=== PATIENT | male | born 1995 | race Caucasian/White ===

== ENCOUNTER 2025-06-21 06:53 | Emergency (ER) | payer MEDICARE, SELFPAY ==
[2025-06-21 07:00] VITALS: BP 146/76
[2025-06-21 07:07] VITALS: BMI 25.7
--- NOTE | 2025-06-21 07:10 | ED.GENMED ---
History of Present Illness
<Duane Aparicio PA-C - Last Filed: 06/21/25 09:06>
General
Chief Complaint: Seizure
Time Seen by Provider: 06/21/25 06:55
History of Present Illness
History of Present Illness:
30-year-old male with history of severe developmental delay/nonverbal presents to the emergency department for evaluation of a seizure-like event. Father states that he awoke from sleeping, yelled out abruptly and then seemed to lose consciousness.
During this time he wants diffuse tenderness with salivation from the mouth. The episode lasted 1 last. The emergency department he is back to his baseline mentation which is quite agitated. Appears to be moving all extremities.. Unable to
obtain history from the patient directly. Per father he has no history of seizure disorder and takes no medications with the exception of acetaminophen/diphenhydramine marijuana at nighttime for sleep purposes. Dosage of this was not changed
recently.
Review of Systems
<Duane Aparicio PA-C - Last Filed: 06/21/25 09:06>
Review of Systems
Allergies reviewed?: Yes
All Other Systems: ROS reviewed and negative except as documented in HPI and ROS
Phy Exam
<IVELISSE Mackey Last Filed: 06/21/25 09:06>
Physical Exam
Physical Exam:
GEN: Well appearing, NAD, WDWN
HEENT: Oral mucosa moist, no scleral icterus
Cardiac: Tachycardic, regular
Lung: No respiratory distress, no tachypnea, lungs clear to auscultation
MSK: No gross deformity or injuries
Skin: Good color, no pallor or jaundice, no rashes
Neuro: Alert to baseline, agitated and moving all extremities freely, quite vigorous, grunting often
Psych: Calm, cooperative
Course
<Duane Aparicio PA-C - Last Filed: 06/21/25 09:06>
Orders/Labs/Results
Orders:
Orders
06/21/25 07:10
CT Head W/o Iv Contrast Urgent
Comment:
Reason For Exam: new onset seizure
Midazolam HCl [Versed] 2 mg IV NOW STA
06/21/25 07:32
Complete Blood Count/With Diff Urgent
Comprehensive Metabolic Panel Urgent
Urinalysis Reflex To Culture Urgent
Date Specimen was Collected: 06/21/25
Time Specimen was Collected: 07:31
Urine Microscopic Reflex Cult Urgent
06/21/25 07:40
Midazolam HCl [Versed] 2 mg IV NOW STA
Abnormal Lab Results
06/21/25
07:32
MCHC 32.3 L g/dL
(33.0-37.0)
RDW 14.7 H %
(11.5-14.5)
Abs Immat Gran (auto) 0.1 H 10^3/uL
(0-0.05)
Immature Gran % 1.5 H %
(0-0.5)
Carbon Dioxide 21 L mmol/L
(22-30)
Glucose 171 H mg/dl
(70-99)
Ur Occult Blood Reflex 3+ A
(Negative)
Urine Albumin (Reflex) 2+ A
(Neg - Trace)
06/21/25 07:32
06/21/25 07:32
Vital Signs
Initial and Last Documented VS:
Initial Vital Signs
BP
146/76
06/21/25 07:00
Last Documented Vital Signs
Temp Pulse Resp BP Pulse Ox
97.0 F 130 20 146/76 94
06/21/25 07:04 06/21/25 07:30 06/21/25 08:00 06/21/25 07:00 06/21/25 07:30
<Tiffanie Abdullahi MD - Last Filed: 06/21/25 08:21>
Orders/Labs/Results
Orders:
Orders
06/21/25 07:10
CT Head W/o Iv Contrast Urgent
Comment:
Reason For Exam: new onset seizure
Midazolam HCl [Versed] 2 mg IV NOW STA
06/21/25 07:32
Complete Blood Count/With Diff Urgent
Comprehensive Metabolic Panel Urgent
Urinalysis Reflex To Culture Urgent
Date Specimen was Collected: 06/21/25
Time Specimen was Collected: 07:31
Urine Microscopic Reflex Cult Urgent
06/21/25 07:40
Midazolam HCl [Versed] 2 mg IV NOW STA
Abnormal Lab Results
06/21/25
07:32
MCHC 32.3 L g/dL
(33.0-37.0)
RDW 14.7 H %
(11.5-14.5)
Abs Immat Gran (auto) 0.1 H 10^3/uL
(0-0.05)
Immature Gran % 1.5 H %
(0-0.5)
Carbon Dioxide 21 L mmol/L
(22-30)
Glucose 171 H mg/dl
(70-99)
Ur Occult Blood Reflex 3+ A
(Negative)
Urine Albumin (Reflex) 2+ A
(Neg - Trace)
06/21/25 07:32
06/21/25 07:32
Vital Signs
Initial and Last Documented VS:
Initial Vital Signs
BP
146/76
06/21/25 07:00
Last Documented Vital Signs
Temp Pulse Resp BP Pulse Ox
97.0 F 130 20 146/76 94
06/21/25 07:04 06/21/25 07:30 06/21/25 08:00 06/21/25 07:00 06/21/25 07:30
<Duane Aparicio PA-C - Last Filed: 06/21/25 09:06>
MDM/Problems Addressed
MDM/Problems Addressed:
No obvious provoking factor for the patient's seizure and he remained at his baseline mentation throughout emergency department stay. Labs and CT unremarkable. Did discuss case with neurolgy carbon furnace operator who does not recommend AED therapy at this time.
Recommend outpatient primary care and neurology follow-up, I did discuss decreasing nighttime diphenhydramine use with patient's parents
<Duane Aparicio PA-C - Last Filed: 06/21/25 09:06>
*Pulse Oximetry
Patient hypoxic: no
*Critical Care Note
Total Time (30-74mins, 75-104mins- exclusive of procedures): Not Applicable
ED Attending Note
<Duane Aparicio PA-C - Last Filed: 06/21/25 09:06>
-
Portions of this chart may have been created with voice recognition software.� Occasional wrong word or��sound alike� substitutions may have occurred due to the inherent limitations of voice recognition software.
<Tiffanie Abdullahi MD - Last Filed: 06/21/25 08:21>
ED Attending Note
Patient seen and examined by attending physician: Yes
I performed the substantive portion of visit, reviewed & personally made and approve the management plan that is documented in note by myself or DEMETRI.: Yes
ED Attending Note:
30-year-old male who typically only sleeps 5 to 6 hours a night, awoke as he typically would approximate 1:45 AM and came downstairs to watch TV. His father was there with him when he was noted to jump up from the couch, scream out, get stiff, and
then fall back down into couch. Family was concerned that he was difficult to arouse for few minutes, and is now agitated. No cyanosis, apnea. He did have bleeding noted from the left side of his mouth which they suspect is related to biting his
tongue. Patient is now at baseline here. On exam, heart regular rate rhythm, lungs CTA, moves all extremities equally. Labs generally unremarkable, CT pending. History and physical very suggestive of new onset seizure, meds would typically not
be indicated at this time, will need close outpatient follow-up.
Discharge Plan
Departure
Patient Disposition: Home (Routine Discharge)
Date of Disposition: 06/21/25
Time of Disposition: 08:39
Patient with high blood pressure during this ER visit?: No
Discharge Problem:
Seizure
Instructions: Seizures, Adult (DC)
Referrals:
Tiffanie Cui MD [Non-Admitting Privileges, Psychiatry]
Larry Rodriguez DO [Family Provider, Family Practice]
Activity Restrictions/Additional Instructions:
Follow up with neurology
Contact your primary care physician for MRI brain if neurology follow up is not possible within the next few weeks
Decrease the Advil PM usage (due to diphenhydramine/Benadryl component) if possible
Return with any repeat seizure events
Interventions
Interventions:
*Risk Screen - Suicide Last Done: 06/21/25 07:37
*General Assessment Last Done: 06/21/25 07:14
*Neglect/Abuse Screening Last Done: 06/21/25 07:35
*ED- Fall Risk Assessment Last Done: 06/21/25 07:14
*ED COVID-19 Vaccine History Last Done: 06/21/25 07:14
*ED Influenza Vaccine History Last Done: 06/21/25 07:14
*Nursing Disposition Last Done: 06/21/25 08:58
ED- Cardiac Assessment Last Done: 06/21/25 07:37
ED- Neurological Assessment Last Done: 06/21/25 07:38
ED- Pulmonary Assessment Last Done: 06/21/25 07:39
Discharge Date and Time
Discharge Date/Time: 06/21/25 08:58
Print Language: TURKMEN
[2025-06-21] MEDS: VERSED 2 MG IV ×2 (07:26→07:43)
[2025-06-21 07:46] LABS: Hematocrit 40.9 % (39.0-52.0); Hemoglobin 13.2 g/dL (13.0-18.0); Mean Corp Hgb Conc. 32.3 g/dL (33.0-37.0); Mean Corpuscular Volume 86.7 fL (80.0-94.0); Nucleated Red Blood Cells % 0 % (-); Platelet Count 249 10^3/uL (130-400); Red Cell Dist. Width 14.7 % (11.5-14.5)
[2025-06-21 07:50] LABS: Urine Character Clear (Clear)
[2025-06-21 08:12] LABS: ALT (SGPT) 22 U/L (0-50); AST (SGOT) 28 U/L (17-59); Albumin 5.0 g/dl (3.5-5.0); Alkaline Phosphatase 61 U/L (38-126); Blood Urea Nitrogen 15 mg/dl (9-20); Calcium 9.6 mg/dl (8.4-10.2); Carbon Dioxide 21 mmol/L (22-30); Chloride 105 mmol/L (98-107); Estimated Creatinine Clearance 99 ml/min; Glucose 171 mg/dl (70-99); Potassium 3.9 mmol/L (3.5-5.1); Sodium 140 mmol/L (135-145); Total Protein 7.7 g/dl (6.3-8.2); eGFR > 60.00
[2025-06-21 08:14] LABS: Urine Red Blood Cell 0-2 /HPF (0-2); Urine Urothelial Cell 0-2 /LPF (FEW); Urine White Cell 0-2 /HPF (0-5)
== END 2025-06-21 08:58 | disposition home or self-care (01) ==
LOC: EMR 06:53
PROVIDERS: Physician Assistant; EMERGENCY PHYSICIAN Emergency Medicine; FAMILY PHYSICIAN Family Medicine
DX: R56.9 Unspecified convulsions (principal); F88 Other disorders of psychological development
CPT/HCPCS: 96374; 96376; 99284; 70450; 80053; 81003; 81015; 85025

== ENCOUNTER 2025-06-24 08:32 | Emergency (ER) | payer MEDICARE, SELFPAY ==
[2025-06-24 08:44] VITALS: BP 128/88
[2025-06-24 09:18] VITALS: BMI 24.7
--- NOTE | 2025-06-24 10:03 | ED.GENMED ---
History of Present Illness
General
Chief Complaint: Fever
Source: family (Sister, mother, father)
Time Seen by Provider: 06/24/25 09:16
History of Present Illness
History of Present Illness:
This is a 30-year-old male, nonverbal, autism is for reevaluation after a recent visit for a presumed seizure. Since that episode patient has not been ambulating at all or bearing weight. Per the family it seems to be the left knee and possibly
the back causing his issues. At rest and lying flat he appears stable otherwise. He has also had some low-grade intermittent fevers to 101. No other infectious symptoms, no cough congestion vomiting apparent abdominal pain etc. He does normally
however ambulate on his own and has been nonambulatory since this event 3 days ago
Past History
Past History
ED Past Medical History: Other (Autism developmental delays)
ED Past Surgical History: Orthopedic
Review of Systems
Review of Systems
Constitutional: Reports fever
Respiratory: Reports no symptoms
Cardiac: Reports no symptoms
ABD/GI: Reports no symptoms
Phy Exam
Physical Exam
Physical Exam:
GENERAL: Alert. Sitting in bed looking at his iPad. Normocephalic atraumatic
EYE: Orbits normal.
NECK: Supple
CARDIAC: Regular rate and rhythm without any obvious murmurs.
LUNGS: Clear breath sounds,normal
ABDOMEN: Soft, without focal tenderness or distention
NEUROLOGICAL: Grossly nonfocal. Delayed. Does not follow commands. Will move all extremities.
SKIN: Warm and dry, no rash or lesion, no discoloration, skin intact.
MUSCULOSKELETAL: Mild swelling below the left patella but no warmth or erythema. No joint swelling. Does not appear to have any obvious joint pain however difficult to evaluate. Allows me to rotate the hips. Pelvis is stable. Upper extremities
are normal. Will not straight leg raise but this is apparently normal for him. Does appear to have pain and winces with sitting up to evaluate his back. However there is no swelling no abrasion no point tenderness.
PSYCH: Normal and appropriate interaction.
Course
Orders/Labs/Results
Orders:
Orders
06/24/25 09:47
IV Insert/Care/Rem.- Treatment PRN
CR Cervical Spine 2 or 3 Vw Urgent
Comment:
Reason For Exam: back pain
Knee, Left 4 or More Views [CR Knee - Left 4 Or More View*] Urgent
Comment:
Reason For Exam: back pain
Lumbar Spine, 2 or 3 View [CR Lumbar Spine 2 Or 3 Views] Urgent
Comment:
Reason For Exam: back pain
Pelvis, 1 or 2 Views CR [CR Pelvis - 1 Or 2 Views ] Urgent
Comment:
Reason For Exam: non weight bearing
Thoracic Spine 3 Views CR [CR Thoracic Spine 3 Views] Urgent
Comment:
Reason For Exam: nonweight bearing
06/24/25 09:50
CXR2 [CR Chest - 2 Views ] Urgent
Comment:
Reason For Exam: trauma
06/24/25 11:12
Basic Metabolic Panel Urgent
Complete Blood Count/With Diff Urgent
Lyme Progressive Urgent
06/24/25 11:49
COVID-19 Antigen Urgent
Source: Nasal Swab
Influenza A+B Rapid Molecular Urgent
RICARDO Source: Nasal Swab
Specimen Description:
06/24/25 12:08
CT Pelvis W/o Iv Contrast Urgent
Comment:
Reason For Exam: Evaluate bilateral hip abnormalities
Acetaminophen [Tylenol] 650 mg PO NOW STA
06/24/25 15:14
Urinalysis Reflex To Culture Urgent
Abnormal Lab Results
06/24/25
11:12
RBC 4.54 L 10^6/uL
(4.70-6.10)
MCHC 32.6 L g/dL
(33.0-37.0)
RDW 14.9 H %
(11.5-14.5)
Absolute Lymphs (auto) 0.9 L 10^3/uL
(1.2-3.4)
Neutrophils % 79.9 H %
(42.2-75.2)
Lymphocytes % 11.2 L %
(20.5-51.1)
Glucose 111 H mg/dl
(70-99)
06/24/25 11:12
06/24/25 11:12
Vital Signs
Initial and Last Documented VS:
Initial Vital Signs
Temp Pulse Resp BP Pulse Ox
98.8 F 120 18 128/88 98
06/24/25 08:44 06/24/25 08:44 06/24/25 08:44 06/24/25 08:44 06/24/25 08:44
Last Documented Vital Signs
Temp Pulse Resp BP Pulse Ox
98.8 F 111 28 128/88 98
06/24/25 08:44 06/24/25 09:45 06/24/25 09:45 06/24/25 08:44 06/24/25 10:07
MDM/Problems Addressed
Differential Diagnosis Includes:
Difficult exam and difficult in finding the etiology of patient's symptoms. Clinically appears very nontoxic. As far as the knee swelling and fever clinically the knee is actually cool and not warm. There is no general joint swelling the mild
swelling appears to be picked up below the patella. Highly doubt septic arthritis. We will check labs to raise and lower clinical suspicion for issues check x-rays of the spine pelvis and knee.
*Radiology
Radiology exam reviewed: radiology read reviewed (Bilateral femoral head fractures. Questionable T6 fracture. Stercoral colitis. Bladder wall thickening)
*Pulse Oximetry
SaO2: 98
Oxygen Mode of Delivery: Room air
Patient hypoxic: no
*Critical Care Note
Total Time (30-74mins, 75-104mins- exclusive of procedures): 45
Data Reviewed
Review of Other/Old Records Reveals: Labs, Records, Radiology Studies and Testing
Update Note
Update Note:
Multiple discussions with family concerning approach. Orthopedics reviewed this and felt this tertiary orthopedic care. Patient's sister works at [facility]. Discussed with orthopedics [facility] who felt comfortable managing this. Patient
transferred to [facility] to the orthopedic/medicine service.
ED Attending Note
-
Portions of this chart may have been created with voice recognition software.� Occasional wrong word or��sound alike� substitutions may have occurred due to the inherent limitations of voice recognition software.
Discharge Plan
Departure
Patient Disposition: Acute Care Hospital
Date of Disposition: 06/24/25
Time of Disposition: 16:40
Discharge Problem:
Bilateral complex subcapital femur fract, Possible T6 fracture , Developmental delay, Possible recent seizure, stercoral colitis
Referrals:
Larry Rodriguez, DO [Family Provider, Family Practice]
Hospital Transfer
Other hospital: [facility]
I certify that the patient requires transfer: Yes
Discussed case with accepting physician: Brad
Reason for transfer: higher level of care
Interventions
Interventions:
*Risk Screen - Suicide Last Done: 06/24/25 08:44
*General Assessment Last Done: 06/24/25 09:22
*Neglect/Abuse Screening Last Done: 06/24/25 08:44
*ED- Fall Risk Assessment Last Done: 06/24/25 09:22
*ED COVID-19 Vaccine History Last Done: 06/24/25 09:22
ED- Neurological Assessment Last Done: 06/24/25 09:22
ED-Skin Assessment Last Done: 06/24/25 09:22
Discharge Date and Time
Print Language: UPPER SORBIAN
[2025-06-24 11:22] LABS: Hematocrit 39.9 % (39.0-52.0); Hemoglobin 13.0 g/dL (13.0-18.0); Mean Corp Hgb Conc. 32.6 g/dL (33.0-37.0); Mean Corpuscular Volume 87.9 fL (80.0-94.0); Nucleated Red Blood Cells % 0 % (-); Platelet Count 227 10^3/uL (130-400); Red Cell Dist. Width 14.9 % (11.5-14.5)
[2025-06-24 11:56] LABS: Blood Urea Nitrogen 16 mg/dl (9-20); Calcium 9.0 mg/dl (8.4-10.2); Carbon Dioxide 28 mmol/L (22-30); Chloride 106 mmol/L (98-107); Estimated Creatinine Clearance > 125 ml/min; Glucose 111 mg/dl (70-99); Potassium 3.8 mmol/L (3.5-5.1); Sodium 140 mmol/L (135-145); eGFR > 60.00
[2025-06-24 12:14] LABS: COVID-19 Antigen Negative (Negative)
[2025-06-24] MEDS: TYLENOL 650 MG PO (12:16)
[2025-06-24 16:36] VITALS: BP 138/98
[2025-06-24 16:40] VITALS: BP 138/98
[2025-06-24] MEDS: TORADOL 15 MG IV (16:57)
[2025-06-24 17:02] LABS: Urine Character Clear (Clear)
[2025-06-24 17:11] LABS: Urine Red Blood Cell 0-2 /HPF (0-2)
[2025-06-25 16:09] LABS: Lyme Antibody Screen, EIA Negative (Negative)
== END 2025-06-24 17:12 | disposition short-term general hospital (02) ==
LOC: EMR 08:32
PROVIDERS: EMERGENCY PHYSICIAN Emergency Medicine; FAMILY PHYSICIAN Family Medicine
DX: S72.012A Unspecified intracapsular fracture of left femur, initial encounter for closed fracture (principal); S72.011A Unspecified intracapsular fracture of right femur, initial encounter for closed fracture; X58.XXXA Exposure to other specified factors, initial encounter; F84.0 Autistic disorder; K52.89 Other specified noninfective gastroenteritis and colitis; Z11.52 Encounter for screening for COVID-19
CPT/HCPCS: 99291; 96374; 71046; 72040; 72072; 72100; 72170; 72192; 73564; 80048; 81003; 81015; 85025; 86618; 87502; 87811